=== PATIENT | male | born 1985 | race Caucasian/White ===

== ENCOUNTER 2017-07-10 12:28 | Day surgery (SDC) | payer OTHER, SELFPAY ==
[2017-07-10] VITALS (7 sets, daily range): BP systolic 104–123; BP diastolic 65–81; PULSE 74–83; RESP 16–18; TEMP 36.1–36.6; O2SAT 93–100
--- NOTE | 2017-07-10 | IMM_PTH ---
PATIENT: [place]ICK [place] [facility] [id number] AGE/SX: 32/M ROOM: RE07/10/[address]: Dr. William Huerta, CONY : 1985 BED: DIS: 07/10/2017 SPEC #: [id number] RECD: 07/14/17 13:09 STATUS: DENISE REPaul #: [id number] KELSEY: 07/10/17 00:[address]: William Huerta DEPT: IMMUNOHISTOCHEMISTRY RECD BY: Khloe Gaviria ENTERED: 07/14/17 13:11 SP TYPE: IMMUNO OTHR DR: Dr. Jasper Raygoza, DO Tissues: Oral soft tissues, NOS Procedures: SMA (add) CD31 (add) CD34 (add) DESMIN (add) PAOLO (add) P53 (add) Vimentin (add) 34BE12 (add) SMM (add) Pankeratin (initial) S-100 (add) PHYSICIAN & INSTITUTION [place] [id number] SPECIMEN INFORMATION: Tissue Source: Lesion floor of mouth Clinical Info: Lesion floor of mouth Specimen Number: [id number] CPT code: 86008, 80591 x10 METHODOLOGY: Deparaffinized sections of prefer/formalin-fixed tissue or PAP/DQ stained slides are incubated with monoclonal/polyclonal antibodies/oligonucleotide probes. Localization is made via biotin free immunoperoxidase method. Appropriate controls are performed and reacted as expected. Results on target cell population are indicated in the following table: RESULTS: ANTIBODY / CLONE RESULT AE1-3 (AE1/AE3/PCK26) negative Actin (1A4) negative Desmin (CE-R-11) positive Vimentin (V9) positive S-100 (4C4.9) negative CD34 (QBEnd-10) negative Myosin (simms1) negative PAOLO (E29) negative 34BE12 (34BE12) negative CD31 (MELVIN/70A) negative P53 (DO-7) negative These tests were developed and their performance characteristics determined by [facility]. They may not have been cleared or approved by the [place]. Food and Drug Administration. The FDA has determined that such clearance or approval is not necessary. INTERPRETATION: Lesion floor of mouth, excision: Consistent with benign schwannoma. AM:miguel 07/15/17 Case has been reviewed in consultation with Dr. Bell who concurs with the above diagnosis. IDC:CHERISE
[2017-07-10] MEDS: Clindamycin 900 MG/50 ML BAG 75 MG IV (13:47)
--- NOTE | 2017-07-10 14:00 | LES_PTH ---
PATIENT: ERICK GILES LOC: [facility] – [place] U#:[id number] AGE/SX: 32/M ROOM: RE07/10/[address]: Dr. William Huerta DDS : 1985 BED: DIS: 07/10/2017 SPEC #: [id number] RECD: 07/11/17 09:24 STATUS: DENISE CALLI #: [id number] KELSEY: 07/10/17 14:[address]: William Huerta DEPT: SURGICAL PATHOLOGY RECD BY: Regulo June ENTERED: 07/11/17 11:15 SP TYPE: Lesion OTHR DR: Dr. Jasper Raygoza, DO Tissues: Soft palate Procedures: Surgery Specimen Level IV HEADER OPERATION: Excision, lesion floor of mouth PRE-OP DIAGNOSIS: Lesion floor of mouth TISSUE SUBMITTED: Lesion floor of mouth MICROSCOPIC DIAGNOSIS Lesion floor of mouth, biopsy: Consistent with schwannoma. AM:miguel 07/15/17 COMMENT Immunohistochemistry ([id number]) supports the above diagnosis. Case has been reviewed in consultation with Dr. Bell who concurs with the above diagnosis. IDC:SJ MICROSCOPIC DESCRIPTION Slides are reviewed. GROSS DESCRIPTION Received in fixative is one container labeled with the patient's name and designated lesion floor of mouth. The specimen consists of a piece of canas mucosal tissue measuring 1.8 x 1.2 x 0.8 cm. The specimen is inked, serially sectioned and submitted entirely in one cassette. / CHERISE:miguel 07/11/17 TC:1 CPT: 07460
--- NOTE | 2017-07-10 15:03 | PCM.OPRPT ---
Report of Operation Date of Procedure: 07/10/17 Pre-Operative Diagnosis: Tumor/cyst ventral tongue Post-Operative Diagnosis: Tumor Ventral tongue Surgery/Procedure Performed:: Excision lesion ventral tongue Description of Surgical Findings:: The patient was identified in the pre-op holding room. Holding room the patient his father and are present. There were asked if they had any questions. The risk and potential complications included but were not limited to pain, infection, bleeding, possible need for revision surgery, possible injury to neurovascular structures resulting in numbness in the base of the tongue were given. Consent was obtained. Patient was taken to the operating room and the patient was placed into the supine position on the operating room table. Anesthetic monitors were placed the patient was given general anesthesia and a laryngeal mask airway was placed. He was then prepped and draped in the usual manner for oral surgery. The lesion is located in the right ventral tongue. The administration of local anesthesia a paramidline incision located in the ventral tongue was made in the base of the tongue. Incision was both sharp and blunt dissection. Carefully working between numerous blood vessels in the base of the tongue lesion was approached removed without complication. Lesion was well circumscribed. Bleeding was minimal and well controlled. Irrigation of the wound bed was performed and suturing was done with 4-0 chromic gut. The oral cavity was suctioned free of all debri and the previously placed throat pack was removed. Patient awakened in OR and taken to recovery in stable condition breathing spontaneously. All sponge and needle counts were correct. Type of Anesthesia:: General - augmented with local Specimen's removed: soft tissue tumor 1.5 cm in diameter Drains: none Estimated Blood Loss (mL): minimal - Complications None
== END 2017-07-10 15:48 | disposition home or self-care (01) ==
LOC: SDC 12:30 → AC 12:32
PROVIDERS: Family Provider Student in an Organized Health Care Education/Training Program; PCP Student in an Organized Health Care Education/Training Program; Visit Provider Dentist Oral and Maxillofacial Surgery
PROC: (CPT 41112; principal; 2017-07-10 13:50)
DX: D36.10 Benign neoplasm of peripheral nerves and autonomic nervous system, unspecified (principal)
CPT/HCPCS: 00170; 41112; 88305; 88341; 88342; J7120; J2405